=== PATIENT | male | born 1950 | race African-American/Black ===

== ENCOUNTER 2017-07-22 08:22 | Inpatient (IN) | payer OTHER ==
--- NOTE | 2017-07-22 08:25 | PDOC ---
Attending Attestation - HPI HPI: 07/22/17 09:15 The patient is a 67 year old male with PMhx of CHF, alcohol use, who present to the ER for lower GI bleed and lightheadness He states that his last drink was yesterday, 5 glasses of wine.He is complaining of painless rectal bleeding ( bright red blood). - Physicial Exam PE: 07/22/17 09:03 GENERAL: Symptomatic anemia. Painless bleeding at rectum. No tremors. HEAD: No signs of trauma EYES: PERRLA, EOMI, sclera anicteric, Pale conjunctiva. ENT: Auricles normal inspection, hearing grossly normal, nares patent, oropharynx clear without exudates. Moist mucosa. NECK: Normal ROM, supple, no lymphadenopathy, JVD, or masses LUNGS: Breath sounds equal, clear to auscultation bilaterally. No wheezes, and no crackles HEART: Regular rate and rhythm, normal S1 and S2, no murmurs, rubs or gallops ABDOMEN: Soft, obese, nontender, normoactive bowel sounds. No guarding, no rebound. No masses EXTREMITIES: Normal range of motion, no edema. No clubbing or cyanosis. No cords, erythema, or tenderness NEUROLOGICAL: Cranial nerves II through XII grossly intact. Normal speech, normal gait SKIN: Warm, Dry, normal turgor, no rashes or lesions noted. <Alida Thompson - Last Filed: 07/22/17 09:15> - Resident Resident Name: AnniNakialazaro - ED Attending Attestation I have performed the following: I have examined & evaluated the patient, The case was reviewed & discussed with the resident, I agree w/resident's findings & plan, Exceptions are as noted - Critical Care Time Total Critical Care Time: 30 Critical Care Statement: The care of this patient involved high complexity decision making to prevent further life threatening deterioration of the patient 's condition and/or to evaluate & treat vital organ system(s) failure or risk of failure. - Medical Decision Making 07/22/17 08:25 I, Dr. Rea Irving, DO, attest that this document has been prepared under my direction and personally reviewed by me in its entirety. I further attest, that it accurately reflects all work, treatment, procedures and medical decision -making performed by me. 07/22/17 08:49 a/p: 67yo male with LGIB/BRBPR -labs, type and screen, PT/IN -concern given etoh use for alcoholic liver disease and plt dysfunction -will need NPO, ivf hydration, banana bag -will monitor for alcohol withdrawal -will need admission and GI consultation -may need transfusion 07/22/17 10:02 hgb 9 lactate 2.5 receiving IVF hydration will need admission for LGIB will need repeat h/h and GI eval Dr. Hidalgo admits to Dr. Jordan call placed to dr. jordan <Rea Irving - Last Filed: 07/22/17 10:03> Heart Score/ECG Review - ECG Intrepretation Comment:: 07/22/17 08:53 sinus at 75, nl axis, pvc, t wave flattening diffusely, no acute st/t wave findings <Rea Irving - Last Filed: 07/22/17 10:03>
[2017-07-22] MEDS ORDERED: SODIUM CHLORIDE 0.9% 1000 ML INFUS.BAG IV ONE (08:26)
[2017-07-22 08:29] VITALS: BMI 34.8
[2017-07-22] MEDS ORDERED: FOLIC ACID INJECTION - 1 MG, THIAMINE HCL 100 MG, MULTIVIT INJECTION ADULT 10 ML in SOD... IVPB ONE (08:51)
[2017-07-22 09:07] LABS: BASOPHIL 0.5 % (0-2.0); EOSINOPHIL 1.2 % (0-4.5); MCH 30.8 pg (25.7-33.7); MCHC 32.2 g/dl (32.0-35.9); MEAN CELL VOLUME 95.8 fl (80-96); MEAN PLT VOLUME 7.5 fl (7.5-11.1); NEUTROPHILS 84.1 % (42.8-82.8); PLATELET COUNT 262 K/MM3 (134-434); RDW 15.9 % (11.9-15.9); WHITE BLOOD COUNT 15.1 K/mm3 (4.0-10.0)
--- NOTE | 2017-07-22 09:17 | PDOC ---
History of Present Illness - General Chief Complaint: Bleeding from Anus Stated Complaint: DIZZINESS/GI BLEED Time Seen by Provider: 07/22/17 08:25 - History of Present Illness Initial Comments: 67 y/o male with PMH of CHF and previous EtOH abuse (admitted for withdrawls in the the past) presents to the ED by ambulance for dark red blood per rectum. He has had 5 episodes of of these dark clot passage since yesterday afternoon. He has never had this prior to these past two days. Denies any chest pain, nausea, vomiting, diarrhea, fevers, chills, or other symptoms. His last drink was yesterday afternoon and he denies any symptoms of withdrawl. He has been admitted for alcohol withdrawals in the remote past but has not been drinking as much as he used to years ago. He currently drinks 3-5 drinks every few days. There was dark blood soaking the back of his pants and on the stretcher when he arrived via EMS. His PCP is Dr. Glen Hidalgo. He has never been evaluatd by a GI doctor because of insurance issues but did have a stress test in October which was clean. 07/22/17 09:16 Past History - Past Medical History Allergies/Adverse Reactions: Allergies Allergy/AdvReac Type Severity Reaction Status Date / Time No Known Allergies Allergy Verified 07/22/17 08:27 Home Medications: Ambulatory Orders Furosemide [Lasix -] 20 mg PO DAILY #30 tablet 07/02/14 Amlodipine Besylate 5 mg PO DAILY 07/22/17 Aspirin [ASA -] 81 mg PO DAILY 07/22/17 Atorvastatin Calcium 20 mg PO DAILY 07/22/17 Carvedilol [Coreg -] 12.5 mg PO BID 07/22/17 COPD: No HTN: Yes Hypercholesterolemia: Yes - Suicide/Smoking/Psychosocial Hx Smoking History: Former smoker Have you smoked in the past 12 months: No Number of Cigarettes Smoked Daily: 0 Information on smoking cessation initiated: No Hx Alcohol Use: Yes (hx of) Drug/Substance Use Hx: No Substance Use Type: Alcohol Review of Systems - Review of Systems Constitutional: No: Chills, Diaphoresis, Fever HEENTM: No: Blurred Vision Respiratory: No: Cough, Shortness of Breath, Wheezing Cardiac (ROS): No: Chest Pain, Edema, Irregular Heart Rate ABD/GI: Yes: Rectal Bleeding. No: Diarrhea, Nausea, Vomiting, Tarry Stools : No: Burning, Dysuria Musculoskeletal: No: Back Pain Integumentary: No: Bruising, Erythema, Lesions Neurological: No: Headache *Physical Exam - Vital Signs Last Vital Signs Temp Pulse Resp BP Pulse Ox 98.6 F 74 18 139/60 100 07/22/17 08:27 07/22/17 08:27 07/22/17 08:27 07/22/17 08:27 07/22/17 08:27 - Physical Exam General Appearance: Yes: Nourished, Appropriately Dressed. No: Apparent Distress HEENT: positive: EOMI, OPAL, Normal ENT Inspection Neck: positive: Trachea midline, Normal Thyroid, Supple. negative: Tender, Rigid Respiratory/Chest: positive: Lungs Clear, Normal Breath Sounds. negative: Chest Tender, Respiratory Distress, Accessory Muscle Use Cardiovascular: positive: Regular Rhythm, Regular Rate. negative: Murmur Gastrointestinal/Abdominal: positive: Normal Bowel Sounds, Flat, Soft. negative : Tender Rectal Exam: positive: other (Gross blood soaking through his pants and around his rectum. No obvious source of bleeding, external hemorrhoids, or pain in/ around his anus.). negative: normal exam, hemorrhoids Musculoskeletal: positive: Normal Inspection. negative: CVA Tenderness Extremity: positive: Normal Capillary Refill, Normal Inspection, Normal Range of Motion Integumentary: positive: Dry, Warm. 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, Fully Oriented, Alert, Normal Mood/ Affect, Normal Response ED Treatment Course - LABORATORY CBC & Chemistry Diagram: 07/22/17 08:55 07/22/17 08:55 - ADDITIONAL ORDERS Additional order review: 07/22/17 08:55 RBC 2.96 L D MCV 95.8 MCHC 32.2 RDW 15.9 MPV 7.5 D Neutrophils % 84.1 H Lymphocytes % 7.9 L D Monocytes % 6.3 Eosinophils % 1.2 D Basophils % 0.5 - Medications Given in the ED: ED Medications Discontinued Medications Generic Name Dose Route Start Last Admin Trade Name Freq PRN Reason Stop Dose Admin Sodium Chloride 1,000 ml 07/22/17 08:26 07/22/17 09:09 Normal Saline - IV 07/22/17 08:27 1,000 ml ONCE ONE Administration Medical Decision Making - Medical Decision Making 67 year old male with active bleeding from his rectum. Has not had GI workup in the past but some element of EtOH liver diseases is expected. Rectal exam did not demonstrate an obvious hemorrhoid but this could be a cause to rule out. However, highest on our differential is diverticulosis. Not likely mesenteric ischemia as he is not complaining of pain. Labs returned significant for HgB of 9.1 (down from 12, 3 years prior), Cr of 2.8 (up from 1.8, 3 years prior), and lactate of 2.5. 07/22/17 10:[address] Kwok (covering for Gwen) who wants to admit the patient to the ICU and consult GI. Spoke to Dr. Lopez who wants us to speak to GI prior to sending the patient upstairs to the ICU. Spoke to Dr. Ahuja who informed us to speak to Dr. Roque. Dr. Roque told us to speak to Dr. Farrell. Dr. Farrell came down and evaluated the patient at 11:14 AM with plans to scope tomorrow upper and lower. 07/22/17 11:01 *DC/Admit/Observation/Transfer Diagnosis at time of Disposition: GI bleed Qualifiers: GI bleed type/associated pathology: anorectal hemorrhage Qualified Code(s): K62.5 - Hemorrhage of anus and rectum - Discharge Dispostion Condition at time of disposition: Stable Admit: Yes - Referrals Referrals: Glen Hidalgo [Primary Care Provider] - - Patient Instructions - Post Discharge Activity
[2017-07-22 09:27] LABS: INR 1.11 (0.82-1.09); PROTHROMBIN TIME (PATIENT) 12.5 SEC (9.98-11.88)
[2017-07-22 09:29] LABS: ACTIVATED PTT 25.2 SECONDS (26.9-34.4)
[2017-07-22 09:31] LABS: ALBUMIN 3.1 g/dl (3.4-5.0); ANION GAP 7 (8-16); BILIRUBIN,TOTAL 0.7 mg/dL (0.2-1.0); CALCIUM 8.2 mg/dL (8.5-10.1); CO2 26 mmol/L (21-32); CREATININE 2.8 mg/dL (0.7-1.3); GLUCOSE,RANDOM 149 mg/dL (74-106); SGOT/AST 18 U/L (15-37); SGPT/ALT 20 U/L (12-78); TOT PROT 5.8 g/dl (6.4-8.2)
[2017-07-22 09:33] LABS: ALK PHOS 85 U/L (45-117); CPK 617 IU/L (39-308); TROPONIN I < 0.02 ng/ml (0.00-0.05)
[2017-07-22] MEDS ORDERED: PANTOPRAZOLE SODIUM 40 MG VIAL IVPUSH ONE (11:15)
--- NOTE | 2017-07-22 11:26 | CON.GI ---
Consult Consult Specialty:: GI Referred by:: ED Reason for Consultation:: blood in stool - History of Present Illness History of Present Illness: A 67 yom with CHF, RI, and current ETOH abuse noticed 1 day ago dark colored blood in stool. Had 3 lose bms without urgency, tenismus, abdominal pain, cramps , nausea, vomiting, or fever. Denies chest pain, shortness of breath, dizziness. Admits to be an alcoholic. COntinues to drink about 5 glasses of wine daily. Was told he had liver "problem" in the past. Never had EGD, Colonoscopy. No prior history of GI bleeding, diverticulosis, ulcers. No significant personal, or family GI history.Takes ASA daily. Denies other NSAIDs - History Source History Provided By: Patient Limitations to Obtaining History: No Limitations - Past Medical History Cardio/Vascular: Yes: CHF, HTN Renal/: Yes: Renal Inusuff - Past Surgical History Past Surgical History: Yes: None - Alcohol/Substance Use Hx Alcohol Use: Yes (hx of) Number of Drinks Daily: 5 History of Substance Use: reports: None - Smoking History Smoking history: Former smoker Have you smoked in the past 12 months: No Aproximately how many cigarettes per day: 0 - Social History History of Recent Travel: No Home Medications - Allergies Allergies/Adverse Reactions: Allergies Allergy/AdvReac Type Severity Reaction Status Date / Time No Known Allergies Allergy Verified 07/22/17 08:27 - Home Medications Home Medications: Ambulatory Orders Furosemide [Lasix -] 20 mg PO DAILY #30 tablet 07/02/14 Amlodipine Besylate 5 mg PO DAILY 07/22/17 Aspirin [ASA -] 81 mg PO DAILY 07/22/17 Atorvastatin Calcium 20 mg PO DAILY 07/22/17 Carvedilol [Coreg -] 12.5 mg PO BID 07/22/17 Family Disease History - Family Disease History Family History: Unremarkable Review of Systems - Review of Systems Constitutional: denies: Chills, Fever, Unintentional Wgt. Loss HENT: denies: Difficult Swallowing Respiratory: denies: PND, SOB, SOB on Exertion Gastrointestinal: reports: Diarrhea, Rectal Bleeding (see HPI). denies: Abdominal Pain, Bloating, Dysphagia, Vomiting, Vomiting Blood Neurological: reports: Tremors Endocrine: denies: Unexplained Weight Loss Hematology/Lymphatic: denies: Easily Bruised, Excessive Bleeding Psychiatric: denies: Anxiety, Depression Physical Exam-GI Vital Signs: Vital Signs Temperature 98.1 F 07/22/17 10:28 Pulse Rate 71 07/22/17 10:28 Respiratory Rate 18 07/22/17 10:28 Blood Pressure 125/60 07/22/17 10:28 O2 Sat by Pulse Oximetry (%) 98 07/22/17 10:28 Constitutional: Yes: Well Nourished, Calm Eyes: Yes: Conjunctiva Clear HENT: Yes: Atraumatic Neck: Yes: Supple Cardiovascular: Yes: Regular Rate and Rhythm Respiratory: Yes: Regular Gastrointestinal Inspection: Yes: Distention. No: Ascites ...Palpate: Yes: Soft. No: Firm/Rigid, Guarding, Mass, Pulsatile Mass, Tenderness ...Percussion: No: Fluid Wave ...Rectal Exam: Yes: Other (done in ED.) Edema: No Integumentary: No: Jaundice Neurological: Yes: Alert, Oriented Labs: CBC, BMP 07/22/17 08:55 07/22/17 08:55 INR, PTT INR 1.11 (0.82-1.09) 07/22/17 08:55 Laboratory Results - last 24 hr 07/22/17 07/22/17 07/22/17 08:44 08:44 08:55 WBC RBC Hgb Hct MCV MCH MCHC RDW Plt Count MPV Neutrophils % Lymphocytes % Monocytes % Eosinophils % Basophils % PT with INR 12.50 H INR 1.11 PTT (Actin FS) 25.2 L Sodium Potassium Chloride Carbon Dioxide Anion Gap BUN Creatinine Creat Clearance w eGFR Random Glucose Lactic Acid 2.5 H* Calcium Magnesium Total Bilirubin AST ALT Alkaline Phosphatase Creatine Kinase Creatine Kinase Index CK-MB (CK-2) Troponin I Total Protein Albumin Lipase Blood Type O POSITIVE Antibody Screen Negative 07/22/17 07/22/17 08:55 08:55 WBC 15.1 H D RBC 2.96 L D Hgb 9.1 L D Hct 28.4 L D MCV 95.8 MCH 30.8 MCHC 32.2 RDW 15.9 Plt Count 262 MPV 7.5 D Neutrophils % 84.1 H Lymphocytes % 7.9 L D Monocytes % 6.3 Eosinophils % 1.2 D Basophils % 0.5 PT with INR INR PTT (Actin FS) Sodium 140 Potassium 4.3 Chloride 107 Carbon Dioxide 26 Anion Gap 7 L BUN 31 H D Creatinine 2.8 H D Creat Clearance w eGFR 22.65 Random Glucose 149 H D Lactic Acid Calcium 8.2 L Magnesium 2.0 Total Bilirubin 0.7 D AST 18 D ALT 20 D Alkaline Phosphatase 85 D Creatine Kinase 617 H Creatine Kinase Index 2.0 CK-MB (CK-2) 12.382 H Troponin I < 0.02 D Total Protein 5.8 L Albumin 3.1 L Lipase 119 Blood Type Antibody Screen Imaging - Results X-ray: Report Reviewed Problem List - Problems (1) Hematochezia Code(s): K92.1 - MELENA (2) Alcohol abuse Code(s): F10.10 - ALCOHOL ABUSE, UNCOMPLICATED (3) Renal insufficiency Code(s): N28.9 - DISORDER OF KIDNEY AND URETER, UNSPECIFIED (4) Alcohol withdrawal Code(s): F10.239 - ALCOHOL DEPENDENCE WITH WITHDRAWAL, UNSPECIFIED (5) Congestive heart failure, acute Code(s): I50.9 - HEART FAILURE, UNSPECIFIED (6) Continuous alcohol dependence Code(s): F10.20 - ALCOHOL DEPENDENCE, UNCOMPLICATED Assessment/Plan Hematochezia w/o hemodynamic instability. No BMs while in ED. Doubt upper GI source of bleeding however given the chronic alcohol abuse, need to evaluate for esophageal varices, gastritis, esophagitis. Agree with stopping ASA PPI po qd Monitor for signs of ETOH withdrawal Repeat Hgb at 6 pm today Clear liquid diet today, bowel prep tonight for Colonoscopy and EGD in am discussed with the patient ETOH related liver disease work up as OP.
[2017-07-22 12:38] LABS: BASOPHIL 0.4 % (0-2.0); EOSINOPHIL 0.2 % (0-4.5); MCH 30.9 pg (25.7-33.7); MCHC 32.1 g/dl (32.0-35.9); MEAN CELL VOLUME 96.3 fl (80-96); NEUTROPHILS 87.2 % (42.8-82.8); PLATELET COUNT 206 K/MM3 (134-434); RDW 16.2 % (11.9-15.9); WHITE BLOOD COUNT 13.8 K/mm3 (4.0-10.0)
--- NOTE | 2017-07-22 13:27 | CONSULT ---
Consultation: REQUESTING PROVIDER: CONSULT REQUEST: PULM/CCM We have been asked to medically evaluate this patient for GI bleed. HISTORY OF PRESENT ILLNESS: 67 y/o M with PMH of CHF and previous EtOH abuse (50 yr hx, and admitted for withdrawals in the the past), recent ingestion of five glasses of red wine on Saturday, who presented to the ED by ambulance for bright red blood per rectum. As per pt, bleeding started when pt had a BM on Saturday morning (07/20). He noticed voluminous, clotted bright red blood per rectum into the toilet bowl. Pt experienced similar intermittent episodes on Saturday, and on Saturday, he had a near syncopal episode where he felt lightheaded, and nearly fell, his son catching him. Pt did not experience LOC and experienced no head trauma. Bleeding was not a/w fever, chills, abdominal pain, N/V/D. Pt was transferred to the ICU for continued management. Never had EGD, Colonoscopy. No prior history of GI bleeding, diverticulosis, ulcers. No significant personal, or family GI history. Currently, pt has not noticed any BRBPR. Last BM was this AM and he has been able to ambulate to restroom without assistance. REVIEW OF SYSTEMS: CONSTITUTIONAL: Absent: fever, chills, diaphoresis, generalized weakness, malaise, loss of appetite, weight change HEENT: Absent: rhinorrhea, nasal congestion, throat pain, throat swelling, difficulty swallowing, mouth swelling, ear pain, eye pain, visual changes CARDIOVASCULAR: Absent: chest pain, syncope, palpitations, irregular heart rate, lightheadedness , peripheral edema RESPIRATORY: Absent: cough, shortness of breath, dyspnea with exertion, orthopnea, wheezing, stridor, hemoptysis GASTROINTESTINAL: Absent: abdominal pain, abdominal distension, nausea, vomiting, diarrhea, constipation, melena, hematochezia GENITOURINARY: Absent: dysuria, frequency, urgency, hesitancy, hematuria, flank pain, genital pain MUSCULOSKELETAL: Absent: myalgia, arthralgia, joint swelling, back pain, neck pain SKIN: Absent: rash, itching, pallor HEMATOLOGIC/IMMUNOLOGIC: +active BRBPR Absent: easy bleeding, easy bruising, lymphadenopathy, frequent infections ENDOCRINE: Absent: unexplained weight gain, unexplained weight loss, heat intolerance, cold intolerance NEUROLOGIC: Absent: headache, focal weakness or paresthesias, dizziness, unsteady gait, seizure, mental status changes, bladder or bowel incontinence PSYCHIATRIC: Absent: anxiety, depression, suicidal or homicidal ideation, hallucinations. PHYSICAL EXAMINATION Vital Signs - 24 hr 07/22/17 07/22/17 07/22/17 08:27 09:17 09:57 Temperature 98.6 F Pulse Rate 74 70 Pulse Rate [ 72 Left Apical] Respiratory 18 16 Rate Blood Pressure 139/60 Blood Pressure 97/61 [Right Arm] O2 Sat by Pulse 100 98 97 Oximetry (%) 07/22/17 07/22/17 07/22/17 10:28 11:00 11:43 Temperature 98.1 F 97.8 F Pulse Rate 67 Pulse Rate [ 71 Left Apical] Respiratory 18 19 Rate Blood Pressure 151/72 Blood Pressure 125/60 [Right Arm] O2 Sat by Pulse 98 98 Oximetry (%) 07/22/17 11:46 Temperature Pulse Rate Pulse Rate [ Left Apical] Respiratory Rate Blood Pressure Blood Pressure [Right Arm] O2 Sat by Pulse 100 Oximetry (%) GENERAL: Awake, alert, and fully oriented, in no acute distress. Resting comfortably HEAD: Normal with no signs of trauma. EYES: Pupils equal, round and reactive to light, extraocular movements intact, sclera anicteric, conjunctiva clear. NECK: Normal range of motion, supple LUNGS: Breath sounds equal, clear to auscultation bilaterally. No wheezes, and no crackles. HEART: Regular rate and rhythm, normal S1 and S2 without murmur, rub or gallop. ABDOMEN: Soft, nontender, not distended, normoactive bowel sounds, no guarding, no rebound, no masses. MUSCULOSKELETAL: Normal range of motion at all joints. No bony deformities or tenderness. No CVA tenderness. LOWER EXTREMITIES: 2+ dorsalis pedis pulses, warm, well-perfused. No cyanosis. No clubbing. : external hemorrhoid, non-thrombosed, non-bleeding NEUROLOGICAL: Cranial nerves II-XII intact. Laboratory Results - last 24 hr 07/22/17 07/22/17 07/22/17 08:44 08:44 08:55 WBC RBC Hgb Hct MCV MCH MCHC RDW Plt Count MPV Neutrophils % Lymphocytes % Monocytes % Eosinophils % Basophils % PT with INR 12.50 H INR 1.11 PTT (Actin FS) 25.2 L Sodium Potassium Chloride Carbon Dioxide Anion Gap BUN Creatinine Creat Clearance w eGFR Random Glucose Lactic Acid 2.5 H* Calcium Magnesium Total Bilirubin AST ALT Alkaline Phosphatase Creatine Kinase Creatine Kinase Index CK-MB (CK-2) Troponin I Total Protein Albumin Lipase Blood Type O POSITIVE Antibody Screen Negative 07/22/17 07/22/17 07/22/17 08:55 08:55 12:20 WBC 15.1 H D 13.8 H RBC 2.96 L D 2.65 L Hgb 9.1 L D 8.2 L Hct 28.4 L D 25.6 L MCV 95.8 96.3 H MCH 30.8 30.9 MCHC 32.2 32.1 RDW 15.9 16.2 H Plt Count 262 206 D MPV 7.5 D 8.0 Neutrophils % 84.1 H 87.2 H Lymphocytes % 7.9 L D 8.1 Monocytes % 6.3 4.1 Eosinophils % 1.2 D 0.2 D Basophils % 0.5 0.4 PT with INR INR PTT (Actin FS) Sodium 140 Potassium 4.3 Chloride 107 Carbon Dioxide 26 Anion Gap 7 L BUN 31 H D Creatinine 2.8 H D Creat Clearance w eGFR 22.65 Random Glucose 149 H D Lactic Acid Calcium 8.2 L Magnesium 2.0 Total Bilirubin 0.7 D AST 18 D ALT 20 D Alkaline Phosphatase 85 D Creatine Kinase 617 H Creatine Kinase Index 2.0 CK-MB (CK-2) 12.382 H Troponin I < 0.02 D Total Protein 5.8 L Albumin 3.1 L Lipase 119 Blood Type Antibody Screen Active Medications Generic Name Dose Route Start Last Admin Trade Name Giovanni PRN Reason Stop Dose Admin Chlorhexidine Gluconate 1 applic 07/22/17 22:00 Hibiclens For Decolonization - TP HS [facility] Folic Acid 1 mg/ Thiamine HCl 1,000 mls @ 125 mls/hr 07/22/17 08:51 07/22/17 09:48 100 mg/ Multivitamins/Minerals IVPB 07/22/17 16:50 125 mls/hr 10 ml/ Sodium Chloride ONCE ONE Administration Mupirocin 1 applic 07/22/17 22:00 Bactroban Ointment (For Decolonization) - NS 07/27/17 21:59 BID [facility] ASSESSMENT/PLAN: 67 y/o M with PMH of CHF and previous EtOH abuse (50 yr hx, and admitted for withdrawals in the the past), recent ingestion of five glasses of red wine on Saturday, who presented to the ED by ambulance for bright red blood per rectum. Bleeding was not a/w fever, chills, abdominal pain, N/V/D. Pt was transferred to the ICU for continued management. #GI Active GI bleed r/o esophageal varices 2/2 alcoholic abuse -Pt currently active hematochezia w/o hemodynamic instability -Stop aspirin -Hb currently 8.2, dropped one unit over 3 hrs -To receive 1 unit PRBCs stat, d/t hx CHF - 20mg Lasix IVP post transfusion avoid overload NOTE pt refused - will hold unless Hb<7 -On Protonix 40mg IVP qd -Clear liquid diet today, bowel prep tonight for Colonoscopy and EGD in am- NPO after midnight -F/u next CBC -ETOH related liver disease work up as outpt #ALCOHOL WITHDRAWAL -Currently has no signs of withdrawal -Continue Folic acid, thiamine #CARDIO CHF -Currently holding pt's home lasix -Will f/u for signs of overload if pt received unit of blood #F/E/N -Monitor electrolytes -NPO after midnight for EGD, colonoscopy procedures tomorrow #DISPO Continued monitoring in ICU, as pt is actively bleeding Dispo: We will continue to follow the patient. Thank you for this consultative opportunity. Visit type - Emergency Visit Emergency Visit: No - New Patient This patient is new to me today: Yes Date on this admission: 07/22/17 - Critical Care Critical Care patient: Yes Total Critical Care Time (in minutes): 42 Critical Care Statement: The care of this patient involved high complexity decision making to prevent further life threatening deterioration of the patient 's condition and/or to evaluate & treat vital organ system(s) failure or risk of failure.
[2017-07-22] MEDS ORDERED: FUROSEMIDE 40 MG/4 ML INJECTABLE VIAL IVPUSH SCH (13:44)
--- NOTE | 2017-07-22 13:56 | EKG ---
Test Reason : Blood Pressure : / mmHG Vent. Rate : 075 BPM Atrial Rate : 075 BPM P-R Int : 150 ms QRS Dur : 084 ms QT Int : 438 ms P-R-T Axes : 030 035 021 degrees QTc Int : 489 ms SINUS RHYTHM WITH SINUS ARRHYTHMIA WITH OCCASIONAL PREMATURE VENTRICULAR COMPLEXES NONSPECIFIC T WAVE ABNORMALITY PROLONGED QT ABNORMAL ECG WHEN COMPARED WITH ECG OF 28-JUN-2014 09:26, PREMATURE VENTRICULAR COMPLEXES ARE NOW PRESENT T WAVE VARIATION Confirmed by JANI KEENAN, CARTER ([id number]) on 07/22/2017 1:55:44 PM Referred By: Confirmed By:CARTER GUNTER MD
--- NOTE | 2017-07-22 14:10 | PN ---
Teaching Attending Note Name of Resident: Ariana Rodgers ATTENDING PHYSICIAN STATEMENT I saw and evaluated the patient. I reviewed the resident's note and discussed the case with the resident. I agree with the resident's findings and plan as documented. SUBJECTIVE: Briefly, 67yo male with h/o CHF, alcohol abuse who presents with 2 day history of rectal bleeding. Blood described as dark. No nausea, vomiting or abdominal pain. No shortness of breath or chest pain. Never had an endoscopy or colonoscopy. No prior bleeding episodes. Borderline hypotensive upon presentation. OBJECTIVE: Last Vital Signs Temp Pulse Resp BP Pulse Ox 97.8 F 78 18 132/64 100 07/22/17 11:43 07/22/17 14:00 07/22/17 14:00 07/22/17 14:00 07/22/17 11:46 Intake & Output 07/19/17 07/20/17 07/21/17 07/22/17 23:59 23:59 23:59 23:59 Intake Total 540 Output Total 100 Balance 440 Weight 239 lb 3.225 oz Gen: NAD at rest Heart: RRR Lung: decreased breath sounds at the bases Abd: softly distended, nontender Ext: no edema CBC, BMP 07/22/17 12:20 07/22/17 08:55 Active Medications Chlorhexidine Gluconate (Hibiclens For Decolonization -) 1 applic TP HS JULEE Furosemide (Lasix Injection -) 20 mg IVPUSH [employer] JULEE Stop: 07/22/17 20:00 Folic Acid 1 mg/ Thiamine HCl 100 mg/ Multivitamins/Minerals 10 ml/ Sodium Chloride 1,000 mls @ 125 mls/hr IVPB ONCE ONE Stop: 07/22/17 16:50 Last Admin: 07/22/17 09:48 Dose: 125 mls/hr Mupirocin (Bactroban Ointment (For Decolonization) -) 1 applic NS BID JULEE Stop: 07/27/17 21:59 Pantoprazole Sodium (Protonix Iv) 40 mg IVPUSH DAILY [facility] ASSESSMENT AND PLAN: GI Bleed Acute Blood Loss Anemia Lactic Acidosis Alcohol Abuse LV Systolic Dysfunction Acute on Chronic Renal Failure - monitor H/H - transfuse as needed - protonix - GI planning on endoscopy/colonoscopy - ensure large bore peripheral access - monitor for signs of withdrawal, low threshold to start librium - monitor urine output, creatinine - send urine lytes, creatinine to calculate FeNa - renal/bladder sono - NPO for now - DVT prophylaxis Thank you for this consult Glen Lopez MD
--- NOTE | 2017-07-22 15:21 | HP ---
Admitting History and Physical - Primary Care Physician PCP: Araceli Kwok - Admission Chief Complaint: GI BLEED History of Present Illness: HERE WITH LOWER GI BLEED HISTORY OF ETOH USE. DENIES CHEST PAIN OR DIZZINESS. PATIENT IS AWAKE ALERT SAYS HE HAD 5 DRINKS LAST NIGHT. History Source: Patient - Past Medical History Cardiovascular: Yes: CHF, HTN Renal/: Yes: Renal Inusuff - Past Surgical History Past Surgical History: Yes: None - Smoking History Smoking history: Former smoker Have you smoked in the past 12 months: No Aproximately how many cigarettes per day: 0 - Alcohol/Substance Use Hx Alcohol Use: Yes (hx of) Number of Drinks Daily: 5 History of Substance Use: reports: None - Social History History of Recent Travel: No Home Medications - Allergies Allergies/Adverse Reactions: Allergies Allergy/AdvReac Type Severity Reaction Status Date / Time No Known Allergies Allergy Verified 07/22/17 08:27 - Home Medications Home Medications: Ambulatory Orders Furosemide [Lasix -] 20 mg PO DAILY #30 tablet 07/02/14 Amlodipine Besylate 5 mg PO DAILY 07/22/17 Aspirin [ASA -] 81 mg PO DAILY 07/22/17 Atorvastatin Calcium 20 mg PO DAILY 07/22/17 Carvedilol [Coreg -] 12.5 mg PO BID 07/22/17 Review of Systems - Review of Systems Constitutional: reports: No Symptoms Eyes: reports: No Symptoms HENT: reports: No Symptoms Neck: reports: No Symptoms Cardiovascular: reports: No Symptoms Respiratory: reports: No Symptoms Gastrointestinal: reports: Rectal Bleeding Genitourinary: reports: No Symptoms Integumentary: reports: No Symptoms Neurological: reports: No Symptoms Endocrine: reports: No Symptoms Hematology/Lymphatic: reports: No Symptoms Psychiatric: reports: No Symptoms Physical Examination Vital Signs: Vital Signs Temperature 97.8 F 07/22/17 11:43 Pulse Rate 78 07/22/17 14:00 Respiratory Rate 18 07/22/17 14:00 Blood Pressure 132/64 07/22/17 14:00 O2 Sat by Pulse Oximetry (%) 100 07/22/17 11:46 Constitutional: Yes: Mild Distress Eyes: Yes: WNL HENT: Yes: WNL Neck: Yes: WNL Cardiovascular: Yes: WNL Respiratory: Yes: WNL Gastrointestinal: Yes: Distention ...Rectal Exam: Yes: WNL Renal/: Yes: WNL Breast(s): Yes: WNL Musculoskeletal: Yes: WNL Extremities: Yes: WNL Edema: No Peripheral Pulses WNL: Yes Integumentary: Yes: WNL Wound/Incision: Yes: Clean/Dry Neurological: Yes: WNL ...Motor Strength: WNL Psychiatric: Yes: WNL Labs: CBC, BMP 07/22/17 12:20 07/22/17 08:55 Problem List - Problems (1) Alcohol abuse Code(s): F10.10 - ALCOHOL ABUSE, UNCOMPLICATED (2) GI bleed Code(s): K92.2 - GASTROINTESTINAL HEMORRHAGE, UNSPECIFIED Qualifiers: GI bleed type/associated pathology: anorectal hemorrhage Qualified Code(s) : K62.5 - Hemorrhage of anus and rectum (3) Hematochezia Code(s): K92.1 - MELENA Assessment/Plan GI EVAL PPI IV NPO IV FLUIDS THIAMINE IV BANANA BAG OUTPATIENT DETOX
[2017-07-22 17:45] LABS: BASOPHIL 0.3 % (0-2.0); EOSINOPHIL 0.3 % (0-4.5); MCH 30.9 pg (25.7-33.7); MCHC 32.3 g/dl (32.0-35.9); MEAN CELL VOLUME 95.7 fl (80-96); MEAN PLT VOLUME 7.8 fl (7.5-11.1); NEUTROPHILS 82.9 % (42.8-82.8); PLATELET COUNT 230 K/MM3 (134-434); RDW 16.6 % (11.9-15.9); WHITE BLOOD COUNT 12.5 K/mm3 (4.0-10.0)
[2017-07-22] MEDS ORDERED: PEG3350/SOD SULF,BICARB,CL/KCL 4,000 ML SOLN.RECON PO ONE (18:00)
[2017-07-22 18:19] LABS: ALBUMIN 2.7 g/dl (3.4-5.0); ALK PHOS 72 U/L (45-117); ANION GAP 5 (8-16); BILIRUBIN,DIRECT 0.2 mg/dL (0.0-0.2); BILIRUBIN,TOTAL 0.5 mg/dL (0.2-1.0); CALCIUM 7.3 mg/dL (8.5-10.1); CO2 26 mmol/L (21-32); CREATININE 2.4 mg/dL (0.7-1.3); GLUCOSE,RANDOM 109 mg/dL (74-106); SGOT/AST 15 U/L (15-37); SGPT/ALT 18 U/L (12-78); TOT PROT 5.1 g/dl (6.4-8.2)
[2017-07-22 19:20] LABS: INR 1.12 (0.82-1.09); PROTHROMBIN TIME (PATIENT) 12.6 SEC (9.98-11.88)
[2017-07-22] MEDS ORDERED: CHLORHEXIDINE GLUCONATE 4% CLEANSER FOR DECOLONIZATION TP SCH (22:00)
[2017-07-22] MEDS: MUPIROCIN 2% TOPICAL OINTMENT FOR DECOLONIZATION NS SCH (22:09)
[2017-07-23 00:14] LABS: BASOPHIL 0.6 % (0-2.0); EOSINOPHIL 1.4 % (0-4.5); MCH 30.5 pg (25.7-33.7); MCHC 31.7 g/dl (32.0-35.9); MEAN CELL VOLUME 96.3 fl (80-96); MEAN PLT VOLUME 7.9 fl (7.5-11.1); NEUTROPHILS 76.4 % (42.8-82.8); PLATELET COUNT 213 K/MM3 (134-434); RDW 16.3 % (11.9-15.9); WHITE BLOOD COUNT 11.8 K/mm3 (4.0-10.0)
[2017-07-23 06:49] LABS: MCH 31.2 pg (25.7-33.7); MCHC 32.9 g/dl (32.0-35.9); MEAN CELL VOLUME 94.7 fl (80-96); MEAN PLT VOLUME 7.1 fl (7.5-11.1); PLATELET COUNT 194 K/MM3 (134-434); RDW 16.1 % (11.9-15.9); WHITE BLOOD COUNT 9.1 K/mm3 (4.0-10.0)
[2017-07-23 07:09] LABS: ANION GAP 11 (8-16); CALCIUM 7.4 mg/dL (8.5-10.1); CO2 22 mmol/L (21-32); CREATININE 2.1 mg/dL (0.7-1.3); GLUCOSE,RANDOM 104 mg/dL (74-106); MAGNESIUM 1.9 mg/dL (1.8-2.4)
[2017-07-23] MEDS ORDERED: SODIUM PHOSPHATE IVPB ONE (09:00)
[2017-07-23] MEDS ORDERED: WATER IVPB ONE (09:00)
[2017-07-23] MEDS ORDERED: DEXTROSE IVPB ONE (09:00)
[2017-07-23] MEDS ORDERED: POTASSIUM PHOSPHATE 30 MM in DEXTROSE 5%-WATER - 240 ML IVPB ONE (09:30)
[2017-07-23] MEDS: MUPIROCIN 2% TOPICAL OINTMENT FOR DECOLONIZATION NS SCH (09:50)
[2017-07-23] MEDS ORDERED: PANTOPRAZOLE SODIUM 40 MG VIAL IVPUSH SCH (10:00)
--- NOTE | 2017-07-23 10:22 | PN ---
Progress Note, Physician History of Present Illness: Finished prep. Reports clear liquid per rectum. No events overnight. Hgb 7.1 g/ dl. Vital signs normal. - Current Medication List Current Medications: Active Medications Chlorhexidine Gluconate (Hibiclens For Decolonization -) 1 applic TP HS [facility] Last Admin: 07/22/17 22:09 Dose: 1 applic Potassium Phosphate 30 mm/ (Dextrose) 250 mls @ 62.5 mls/hr IVPB ONCE ONE Stop: 07/23/17 13:29 Last Admin: 07/23/17 09:43 Dose: 62.5 mls/hr Mupirocin (Bactroban Ointment (For Decolonization) -) 1 applic NS BID JULEE Stop: 07/27/17 21:59 Last Admin: 07/23/17 09:50 Dose: 1 applic Pantoprazole Sodium (Protonix Iv) 40 mg IVPUSH DAILY [facility] Last Admin: 07/23/17 09:37 Dose: 40 mg - Objective Vital Signs: Vital Signs Temperature 98.5 F 07/23/17 07:43 Pulse Rate 77 07/23/17 06:00 Respiratory Rate 72 H 07/23/17 07:43 Blood Pressure 145/68 07/23/17 07:43 O2 Sat by Pulse Oximetry (%) 100 07/23/17 07:47 Constitutional: Yes: No Distress, Anxious Eyes: Yes: Conjunctiva Clear HENT: Yes: Atraumatic Neck: Yes: Supple Gastrointestinal: Yes: Soft, Distention, Rectal Bleeding (dark blood initially with prep.). No: Tenderness Neurological: Yes: Alert, Oriented, Tremors Labs: CBC, BMP 07/23/17 06:30 07/23/17 05:10 INR, PTT INR 1.12 (0.82-1.09) 07/22/17 17:00 Laboratory Results - last 24 hr 07/22/17 07/22/17 07/22/17 08:44 12:20 14:50 WBC 13.8 H RBC 2.65 L Hgb 8.2 L Hct 25.6 L MCV 96.3 H MCH 30.9 MCHC 32.1 RDW 16.2 H Plt Count 206 D MPV 8.0 Neutrophils % 87.2 H Lymphocytes % 8.1 Monocytes % 4.1 Eosinophils % 0.2 D Basophils % 0.4 PT with INR INR Sodium Potassium Chloride Carbon Dioxide Anion Gap BUN Creatinine Creat Clearance w eGFR Random Glucose Serum Osmolality 300 Lactic Acid Calcium Phosphorus Magnesium Total Bilirubin Direct Bilirubin AST ALT Alkaline Phosphatase Total Protein Albumin Urine Osmolality Cancelled Ur Random Sodium Ur Random Potassium Ur Random Chloride Urine Creatinine Blood Type O POSITIVE Antibody Screen Negative Crossmatch See Detail 07/22/17 07/22/17 07/22/17 17:00 17:00 17:00 WBC 12.5 H RBC 2.40 L Hgb 7.4 L Hct 22.9 L MCV 95.7 MCH 30.9 MCHC 32.3 RDW 16.6 H Plt Count 230 MPV 7.8 Neutrophils % 82.9 H Lymphocytes % 10.1 D Monocytes % 6.4 Eosinophils % 0.3 Basophils % 0.3 PT with INR 12.60 H INR 1.12 Sodium 144 Potassium 4.5 Chloride 113 H Carbon Dioxide 26 Anion Gap 5 L BUN 29 H Creatinine 2.4 H Creat Clearance w eGFR 27.06 Random Glucose 109 H D Serum Osmolality Lactic Acid Calcium 7.3 L Phosphorus Magnesium Total Bilirubin 0.5 D Direct Bilirubin 0.2 AST 15 ALT 18 Alkaline Phosphatase 72 Total Protein 5.1 L Albumin 2.7 L Urine Osmolality Ur Random Sodium Ur Random Potassium Ur Random Chloride Urine Creatinine Blood Type Antibody Screen Crossmatch 07/22/17 07/22/17 07/22/17 17:25 17:25 17:25 WBC RBC Hgb Hct MCV MCH MCHC RDW Plt Count MPV Neutrophils % Lymphocytes % Monocytes % Eosinophils % Basophils % PT with INR INR Sodium Potassium Chloride Carbon Dioxide Anion Gap BUN Creatinine Creat Clearance w eGFR Random Glucose Serum Osmolality Lactic Acid Calcium Phosphorus Magnesium Total Bilirubin Direct Bilirubin AST ALT Alkaline Phosphatase Total Protein Albumin Urine Osmolality 474 Ur Random Sodium 54 Ur Random Potassium 51.6 Ur Random Chloride 70 Urine Creatinine 128.0 Blood Type Antibody Screen Crossmatch 07/23/17 07/23/17 07/23/17 00:00 00:00 05:10 WBC 11.8 H RBC 2.44 L Hgb 7.5 L Hct 23.5 L MCV 96.3 H MCH 30.5 MCHC 31.7 L RDW 16.3 H Plt Count 213 MPV 7.9 Neutrophils % 76.4 Lymphocytes % 13.3 D Monocytes % 8.3 Eosinophils % 1.4 D Basophils % 0.6 PT with INR INR Sodium 143 Potassium 3.5 D Chloride 110 H Carbon Dioxide 22 Anion Gap 11 BUN 23 H D Creatinine 2.1 H Creat Clearance w eGFR Random Glucose 104 Serum Osmolality Lactic Acid 2.2 H* Calcium 7.4 L Phosphorus 2.0 L Magnesium 1.9 Total Bilirubin Direct Bilirubin AST ALT Alkaline Phosphatase Total Protein Albumin Urine Osmolality Ur Random Sodium Ur Random Potassium Ur Random Chloride Urine Creatinine Blood Type Antibody Screen Crossmatch 07/23/17 07/23/17 05:10 06:30 WBC 9.1 RBC 2.28 L Hgb 7.1 L Hct 21.6 L MCV 94.7 MCH 31.2 MCHC 32.9 RDW 16.1 H Plt Count 194 MPV 7.1 L D Neutrophils % Lymphocytes % Monocytes % Eosinophils % Basophils % PT with INR INR Sodium Potassium Chloride Carbon Dioxide Anion Gap BUN Creatinine Creat Clearance w eGFR Random Glucose Serum Osmolality Lactic Acid Calcium Phosphorus Magnesium Total Bilirubin Direct Bilirubin AST ALT Alkaline Phosphatase Total Protein Albumin 2.8 L Urine Osmolality Ur Random Sodium Ur Random Potassium Ur Random Chloride Urine Creatinine Blood Type Antibody Screen Crossmatch Problem List - Problems (1) Hematochezia Code(s): K92.1 - MELENA (2) Alcohol abuse Code(s): F10.10 - ALCOHOL ABUSE, UNCOMPLICATED (3) Renal insufficiency Code(s): N28.9 - DISORDER OF KIDNEY AND URETER, UNSPECIFIED (4) Alcohol withdrawal Code(s): F10.239 - ALCOHOL DEPENDENCE WITH WITHDRAWAL, UNSPECIFIED (5) Congestive heart failure, acute Code(s): I50.9 - HEART FAILURE, UNSPECIFIED (6) Continuous alcohol dependence Code(s): F10.20 - ALCOHOL DEPENDENCE, UNCOMPLICATED Assessment/Plan Acute blood loss anemia Lower GI tract bleeding Alcohol abuse Stable EGD/Colonsocopy this am Discussed with the patient
[2017-07-23] MEDS ORDERED: PROPOFOL 20 ML ONE (11:29)
[2017-07-23] MEDS ORDERED: PHENYLEPHRINE HCL 10 MG/1 ML SINGLE DOSE VIAL ONE (11:29)
--- NOTE | 2017-07-23 12:17 | PN ---
Teaching Attending Note Name of Resident: Ariana Rodgers ATTENDING PHYSICIAN STATEMENT I saw and evaluated the patient. I reviewed the resident's note and discussed the case with the resident. I agree with the resident's findings and plan as documented. SUBJECTIVE: Pt seen and examined in the ICU. Prepped overnight, no bleeding noted. No nausea , vomiting or abdominal pain. OBJECTIVE: Last Vital Signs Temp Pulse Resp BP Pulse Ox 98.5 F 84 18 168/71 100 07/23/17 07:43 07/23/17 10:00 07/23/17 10:00 07/23/17 10:00 07/23/17 07:47 Intake & Output 07/20/17 07/21/17 07/22/17 07/23/17 23:59 23:59 23:59 23:59 Intake Total 5260 0 Output Total 500 650 Balance 4760 -650 Weight 239 lb 3.225 oz 239 lb 6.752 oz Gen: NAD at rest Heart: RRR Lung: decreased breath sounds at the bases Abd: softly distended, nontender Ext: no edema CBC, BMP 07/23/17 06:30 07/23/17 05:10 Active Medications Chlorhexidine Gluconate (Hibiclens For Decolonization -) 1 applic TP HS [facility] Last Admin: 07/22/17 22:09 Dose: 1 applic Potassium Phosphate 30 mm/ (Dextrose) 250 mls @ 62.5 mls/hr IVPB ONCE ONE Stop: 07/23/17 13:29 Last Admin: 07/23/17 09:43 Dose: 62.5 mls/hr Mupirocin (Bactroban Ointment (For Decolonization) -) 1 applic NS BID JULEE Stop: 07/27/17 21:59 Last Admin: 07/23/17 09:50 Dose: 1 applic Pantoprazole Sodium (Protonix Iv) 40 mg IVPUSH DAILY [facility] Last Admin: 07/23/17 09:37 Dose: 40 mg ASSESSMENT AND PLAN: GI Bleed Acute Blood Loss Anemia Lactic Acidosis Alcohol Abuse LV Systolic Dysfunction Acute on Chronic Renal Failure - monitor H/H - transfuse as needed - protonix - for endoscopy/colonoscopy today - ensure large bore peripheral access - monitor for signs of withdrawal, low threshold to start librium - monitor urine output, creatinine - NPO for now - DVT prophylaxis - disposition pending endoscopy/colonoscopy
--- NOTE | 2017-07-23 12:23 | PN ---
Physical Exam: SUBJECTIVE: Patient seen and examined at bedside. 24 hr events -mild tremors in PM, however as per pt, it is his baseline. Last drink Saturday PM -repeat CBC yesterday, 7.5 -pt wanted to avoid transfusions "until necessary" -3 BM's with dark red BPR Today -No acute events -Pt denies DIAMOND, fever, chills, SOB, abdominal pain, N/V/D, or blood per rectum -pt went for colonoscopy, EGD at 11AM. Returned to unit -For transfer to med-surg. Order is in OBJECTIVE: Vital Signs Period Temp Pulse Resp BP Sys/Quintero Pulse Ox Last 24 Hr 97.9 F-98.5 F 68-84 18-72 132-168/63-80 99-100 GENERAL: The patient is awake, alert, and fully oriented, in no acute distress. HEAD: Normal with no signs of trauma. EYES: PERRL, extraocular movements intact, sclera anicteric, conjunctiva clear. NECK: Trachea midline, supple. LUNGS: Breath sounds equal, clear to auscultation bilaterally, no wheezes, no crackles, no accessory muscle use. HEART: Regular rate and rhythm, S1, S2 without murmur, rub or gallop. ABDOMEN: Soft, nontender, nondistended, normoactive bowel sounds, no guarding, no rebound EXTREMITIES: 2+ posterior tibial pulses, warm, well-perfused, no edema. NEUROLOGICAL: Cranial nerves II through XII grossly intact. Laboratory Results - last 24 hr 07/22/17 07/22/17 07/22/17 08:44 12:20 14:50 WBC 13.8 H RBC 2.65 L Hgb 8.2 L Hct 25.6 L MCV 96.3 H MCH 30.9 MCHC 32.1 RDW 16.2 H Plt Count 206 D MPV 8.0 Neutrophils % 87.2 H Lymphocytes % 8.1 Monocytes % 4.1 Eosinophils % 0.2 D Basophils % 0.4 PT with INR INR Sodium Potassium Chloride Carbon Dioxide Anion Gap BUN Creatinine Creat Clearance w eGFR Random Glucose Serum Osmolality 300 Lactic Acid Calcium Phosphorus Magnesium Total Bilirubin Direct Bilirubin AST ALT Alkaline Phosphatase Total Protein Albumin Urine Osmolality Cancelled Ur Random Sodium Ur Random Potassium Ur Random Chloride Urine Creatinine Crossmatch See Detail 07/22/17 07/22/17 07/22/17 17:00 17:00 17:00 WBC 12.5 H RBC 2.40 L Hgb 7.4 L Hct 22.9 L MCV 95.7 MCH 30.9 MCHC 32.3 RDW 16.6 H Plt Count 230 MPV 7.8 Neutrophils % 82.9 H Lymphocytes % 10.1 D Monocytes % 6.4 Eosinophils % 0.3 Basophils % 0.3 PT with INR 12.60 H INR 1.12 Sodium 144 Potassium 4.5 Chloride 113 H Carbon Dioxide 26 Anion Gap 5 L BUN 29 H Creatinine 2.4 H Creat Clearance w eGFR 27.06 Random Glucose 109 H D Serum Osmolality Lactic Acid Calcium 7.3 L Phosphorus Magnesium Total Bilirubin 0.5 D Direct Bilirubin 0.2 AST 15 ALT 18 Alkaline Phosphatase 72 Total Protein 5.1 L Albumin 2.7 L Urine Osmolality Ur Random Sodium Ur Random Potassium Ur Random Chloride Urine Creatinine Crossmatch 07/22/17 07/22/17 07/22/17 17:25 17:25 17:25 WBC RBC Hgb Hct MCV MCH MCHC RDW Plt Count MPV Neutrophils % Lymphocytes % Monocytes % Eosinophils % Basophils % PT with INR INR Sodium Potassium Chloride Carbon Dioxide Anion Gap BUN Creatinine Creat Clearance w eGFR Random Glucose Serum Osmolality Lactic Acid Calcium Phosphorus Magnesium Total Bilirubin Direct Bilirubin AST ALT Alkaline Phosphatase Total Protein Albumin Urine Osmolality 474 Ur Random Sodium 54 Ur Random Potassium 51.6 Ur Random Chloride 70 Urine Creatinine 128.0 Crossmatch 07/23/17 07/23/17 07/23/17 00:00 00:00 05:10 WBC 11.8 H RBC 2.44 L Hgb 7.5 L Hct 23.5 L MCV 96.3 H MCH 30.5 MCHC 31.7 L RDW 16.3 H Plt Count 213 MPV 7.9 Neutrophils % 76.4 Lymphocytes % 13.3 D Monocytes % 8.3 Eosinophils % 1.4 D Basophils % 0.6 PT with INR INR Sodium 143 Potassium 3.5 D Chloride 110 H Carbon Dioxide 22 Anion Gap 11 BUN 23 H D Creatinine 2.1 H Creat Clearance w eGFR Random Glucose 104 Serum Osmolality Lactic Acid 2.2 H* Calcium 7.4 L Phosphorus 2.0 L Magnesium 1.9 Total Bilirubin Direct Bilirubin AST ALT Alkaline Phosphatase Total Protein Albumin Urine Osmolality Ur Random Sodium Ur Random Potassium Ur Random Chloride Urine Creatinine Crossmatch 07/23/17 07/23/17 05:10 06:30 WBC 9.1 RBC 2.28 L Hgb 7.1 L Hct 21.6 L MCV 94.7 MCH 31.2 MCHC 32.9 RDW 16.1 H Plt Count 194 MPV 7.1 L D Neutrophils % Lymphocytes % Monocytes % Eosinophils % Basophils % PT with INR INR Sodium Potassium Chloride Carbon Dioxide Anion Gap BUN Creatinine Creat Clearance w eGFR Random Glucose Serum Osmolality Lactic Acid Calcium Phosphorus Magnesium Total Bilirubin Direct Bilirubin AST ALT Alkaline Phosphatase Total Protein Albumin 2.8 L Urine Osmolality Ur Random Sodium Ur Random Potassium Ur Random Chloride Urine Creatinine Crossmatch Active Medications Generic Name Dose Route Start Last Admin Trade Name Freq PRN Reason Stop Dose Admin Chlorhexidine Gluconate 1 applic 07/22/17 22:00 07/22/17 22:09 Hibiclens For Decolonization - TP 1 applic HS JULEE Administration Potassium Phosphate 30 mm/ 250 mls @ 62.5 mls/hr 07/23/17 09:30 07/23/17 09: 43 Dextrose IVPB 07/23/17 13:29 62.5 mls/hr ONCE ONE Administration Mupirocin 1 applic 07/22/17 22:00 07/23/17 09:50 Bactroban Ointment (For Decolonization) - NS 07/27/17 21:59 1 applic BID JULEE Administration Pantoprazole Sodium 40 mg 07/23/17 10:00 07/23/17 09:37 Protonix Iv IVPUSH 40 mg DAILY JULEE Administration ASSESSMENT/PLAN: 67 y/o M with PMH of CHF and previous EtOH abuse (50 yr hx, and admitted for withdrawals in the the past), recent ingestion of five glasses of red wine on Saturday, who presented to the ED by ambulance for bright red blood per rectum. Bleeding was not a/w fever, chills, abdominal pain, N/V/D. Pt was transferred to the ICU for continued management. #GI Active GI bleed r/o esophageal varices 2/2 alcoholic abuse -Pt currently without hematochezia w/o hemodynamic instability -Aspirin is stopped -Hb currently 7.1 -Receive 1 unit if Hb<7 - if receive unit, 20mg Lasix IVP post transfusion to avoid overload -On Protonix 40mg IVP qd -EGD/Colonoscopy results: normal EGD, severe sigmoid diverticulosis, cecal flat polyp- bx, sessile polyp removed -F/u next CBC tomorrow AM -ETOH related liver disease work up as outpt RLQ tenderness most likely 2/2 air trapping s/p procedure -will monitor, should resolve -if pt spikes fever, may need abdominal x-ray #ALCOHOL WITHDRAWAL -Pt has active tremor in upper extremities, baseline for pt -Continue to monitor for signs of withdrawal -Continue Folic acid, thiamine #CARDIO CHF -Currently holding pt's home lasix -Will f/u for signs of overload if pt received unit of blood #RENAL Acute on Chronic Renal Failure -Cr improving, currently 2.1 -Continue to monitor BMP Borderline hypokalemia -Repleted with K phosph 30 mmol in D5w Hypophosphatemia -Repleted with K phosph 30 mmol in D5w Hypocalcemia -Repleted with 1g Ca gluconate IVPB #F/E/N -Monitor electrolytes -High fiber diet #PROPHYLAXIS DVT: SCD's #DISPOSITION Stable for transfer to med-surg. Order is in Visit type - Emergency Visit Emergency Visit: No - New Patient This patient is new to me today: No - Critical Care Critical Care patient: Yes Total Critical Care Time (in minutes): 42 Critical Care Statement: The care of this patient involved high complexity decision making to prevent further life threatening deterioration of the patient 's condition and/or to evaluate & treat vital organ system(s) failure or risk of failure.
--- NOTE | 2017-07-23 12:39 | PROC ---
Endoscopy Procedure Endoscopy procedure completed. Please see scanned procedure report. Normal EGD Severe sigmoid, non-bleeding, diverticulosis Cecal, 3x3 cm, flat polyp tattooed and extensively biopsied IC valve, 4 mm, sessile polyp removed via cold forceps biopsy. High fiber diet Avoid NSAIDs Follow up in office in 2 weeks
--- NOTE | 2017-07-23 13:36 | CONSULT ---
Consultation: REQUESTING PROVIDER: CONSULT REQUEST: We have been asked to medically evaluate this patient for ( specify). HISTORY OF PRESENT ILLNESS: The pt is a 67 year old male with a pmh of HTN, alcoholism who presented to the hospital for lower GI bleeding. He started bleeding on 3 days ago, bright red blood, multiple BMs. He has never had any bleeding in the past. He doesn't follow any GI doctor. He was told by his PCP that he has liver problem. Two years ago he was hospitalized for alcoholism and CHF. 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 His father and brother had kidney disease. Today, when I saw the patient after endoscopy he didn't have any complaints. He denies nausea, vomiting, bleeding, fever, chills. He denies dizziness, tremor, headache, abdominal pain, SOB, chest pain. REVIEW OF SYSTEMS: CONSTITUTIONAL: Absent: fever, chills, diaphoresis, generalized weakness, malaise, loss of appetite HEENT: Absent: rhinorrhea, nasal congestion, throat pain, throat swelling CARDIOVASCULAR: Absent: chest pain, syncope, palpitations, irregular heart rate, lightheadedness , peripheral edema RESPIRATORY: Absent: cough, shortness of breath, dyspnea with exertion, orthopnea GASTROINTESTINAL: Absent: abdominal pain, abdominal distension, nausea, vomiting, diarrhea, constipation, melena, hematochezia GENITOURINARY: Absent: dysuria, frequency, urgency, hesitancy, hematuria, flank pain MUSCULOSKELETAL: Absent: myalgia, arthralgia, joint swelling, back pain, neck pain SKIN: Absent: rash, itching, pallor ENDOCRINE: Absent: unexplained weight gain, unexplained weight loss NEUROLOGIC: Absent: headache, focal weakness or paresthesias, dizziness, unsteady gait, seizure PHYSICAL EXAMINATION Vital Signs - 24 hr 07/22/17 07/22/17 07/22/17 14:00 16:00 17:28 Temperature 98.2 F Pulse Rate 78 72 74 Respiratory 18 20 20 Rate Blood Pressure 132/64 141/63 153/69 O2 Sat by Pulse 100 Oximetry (%) 07/22/17 07/22/17 07/22/17 19:49 20:00 21:20 Temperature 97.9 F Pulse Rate 78 Respiratory 20 Rate Blood Pressure 144/80 O2 Sat by Pulse 100 99 Oximetry (%) 1107/23/17 07/23/17 22:00 00:00 02:00 Temperature 98.0 F Pulse Rate 72 68 74 Respiratory 18 20 18 Rate Blood Pressure 139/72 132/68 133/67 O2 Sat by Pulse Oximetry (%) 07/23/17 07/23/17 07/23/17 04:00 06:00 07:43 Temperature 98.4 F 98.5 F Pulse Rate 72 77 Respiratory 20 20 72 H Rate Blood Pressure 133/67 134/68 145/68 O2 Sat by Pulse Oximetry (%) 07/23/17 07/23/17 07/23/17 07:47 08:00 10:00 Temperature Pulse Rate 84 Respiratory 18 Rate Blood Pressure 168/71 O2 Sat by Pulse 100 100 Oximetry (%) 07/23/17 07/23/17 07/23/17 11:00 12:20 12:35 Temperature 98.7 F 9804 F H Pulse Rate 84 74 Respiratory 18 18 Rate Blood Pressure 121/71 129/78 O2 Sat by Pulse 97 Oximetry (%) GENERAL: Awake, alert, and fully oriented, in no acute distress. HEAD: Normal with no signs of trauma. EYES: Pupils equal, round and reactive to light, extraocular movements intact, sclera anicteric, conjunctiva clear. EARS, NOSE, THROAT: Ears normal, nares patent, oropharynx clear without exudates. Moist mucous membranes. NECK: Normal range of motion, supple without lymphadenopathy, JVD, or masses. LUNGS: Breath sounds equal, clear to auscultation bilaterally. No wheezes, and no crackles. No accessory muscle use. HEART: Regular rate and rhythm, normal S1 and S2 without murmur, rub or gallop. ABDOMEN: Obese, distended, hard, nontender, normoactive bowel sounds, no guarding, no rebound, no masses, hepatomegaly present, splenomegaly not able to assess. Shifting dullness not present. MUSCULOSKELETAL: Normal range of motion at all joints. No bony deformities or tenderness. UPPER EXTREMITIES: 2+ pulses, warm, well-perfused. No cyanosis. No clubbing. No peripheral edema. LOWER EXTREMITIES: 2+ pulses, warm, well-perfused. No calf tenderness. No peripheral edema. NEUROLOGICAL: No facial asymmetry, no weakness, motor 5/5, no sensation changes , gait not observed. PSYCHIATRIC: Cooperative. Good eye contact. Appropriate mood and affect. SKIN: Warm, dry, normal turgor, no rashes or lesions noted. Laboratory Results - last 24 hr 07/22/17 07/22/17 07/22/17 08:44 14:50 17:00 WBC 12.5 H RBC 2.40 L Hgb 7.4 L Hct 22.9 L MCV 95.7 MCH 30.9 MCHC 32.3 RDW 16.6 H Plt Count 230 MPV 7.8 Neutrophils % 82.9 H Lymphocytes % 10.1 D Monocytes % 6.4 Eosinophils % 0.3 Basophils % 0.3 PT with INR INR Sodium Potassium Chloride Carbon Dioxide Anion Gap BUN Creatinine Creat Clearance w eGFR Random Glucose Serum Osmolality 300 Lactic Acid Calcium Phosphorus Magnesium Total Bilirubin Direct Bilirubin AST ALT Alkaline Phosphatase Total Protein Albumin Urine Osmolality Cancelled Ur Random Sodium Ur Random Potassium Ur Random Chloride Urine Creatinine Crossmatch See Detail 07/22/17 07/22/17 07/22/17 17:00 17:00 17:25 WBC RBC Hgb Hct MCV MCH MCHC RDW Plt Count MPV Neutrophils % Lymphocytes % Monocytes % Eosinophils % Basophils % PT with INR 12.60 H INR 1.12 Sodium 144 Potassium 4.5 Chloride 113 H Carbon Dioxide 26 Anion Gap 5 L BUN 29 H Creatinine 2.4 H Creat Clearance w eGFR 27.06 Random Glucose 109 H D Serum Osmolality Lactic Acid Calcium 7.3 L Phosphorus Magnesium Total Bilirubin 0.5 D Direct Bilirubin 0.2 AST 15 ALT 18 Alkaline Phosphatase 72 Total Protein 5.1 L Albumin 2.7 L Urine Osmolality 474 Ur Random Sodium Ur Random Potassium Ur Random Chloride Urine Creatinine Crossmatch 07/22/17 07/22/17 07/23/17 17:25 17:25 00:00 WBC 11.8 H RBC 2.44 L Hgb 7.5 L Hct 23.5 L MCV 96.3 H MCH 30.5 MCHC 31.7 L RDW 16.3 H Plt Count 213 MPV 7.9 Neutrophils % 76.4 Lymphocytes % 13.3 D Monocytes % 8.3 Eosinophils % 1.4 D Basophils % 0.6 PT with INR INR Sodium Potassium Chloride Carbon Dioxide Anion Gap BUN Creatinine Creat Clearance w eGFR Random Glucose Serum Osmolality Lactic Acid Calcium Phosphorus Magnesium Total Bilirubin Direct Bilirubin AST ALT Alkaline Phosphatase Total Protein Albumin Urine Osmolality Ur Random Sodium 54 Ur Random Potassium 51.6 Ur Random Chloride 70 Urine Creatinine 128.0 Crossmatch 07/23/17 07/23/17 07/23/17 00:00 05:10 05:10 WBC RBC Hgb Hct MCV MCH MCHC RDW Plt Count MPV Neutrophils % Lymphocytes % Monocytes % Eosinophils % Basophils % PT with INR INR Sodium 143 Potassium 3.5 D Chloride 110 H Carbon Dioxide 22 Anion Gap 11 BUN 23 H D Creatinine 2.1 H Creat Clearance w eGFR Random Glucose 104 Serum Osmolality Lactic Acid 2.2 H* Calcium 7.4 L Phosphorus 2.0 L Magnesium 1.9 Total Bilirubin Direct Bilirubin AST ALT Alkaline Phosphatase Total Protein Albumin 2.8 L Urine Osmolality Ur Random Sodium Ur Random Potassium Ur Random Chloride Urine Creatinine Crossmatch 07/23/17 06:30 WBC 9.1 RBC 2.28 L Hgb 7.1 L Hct 21.6 L MCV 94.7 MCH 31.2 MCHC 32.9 RDW 16.1 H Plt Count 194 MPV 7.1 L D Neutrophils % Lymphocytes % Monocytes % Eosinophils % Basophils % PT with INR INR Sodium Potassium Chloride Carbon Dioxide Anion Gap BUN Creatinine Creat Clearance w eGFR Random Glucose Serum Osmolality Lactic Acid Calcium Phosphorus Magnesium Total Bilirubin Direct Bilirubin AST ALT Alkaline Phosphatase Total Protein Albumin Urine Osmolality Ur Random Sodium Ur Random Potassium Ur Random Chloride Urine Creatinine Crossmatch Active Medications Generic Name Dose Route Start Last Admin Trade Name Freq PRN Reason Stop Dose Admin Chlorhexidine Gluconate 1 applic 07/22/17 22:00 07/22/17 22:09 Hibiclens For Decolonization - TP 1 applic HS JULEE Administration Potassium Phosphate 30 mm/ 250 mls @ 62.5 mls/hr 07/23/17 09:30 07/23/17 09: 43 Dextrose IVPB 07/23/17 13:29 62.5 mls/hr ONCE ONE Administration Mupirocin 1 applic 07/22/17 22:00 07/23/17 09:50 Bactroban Ointment (For Decolonization) - NS 07/27/17 21:59 1 applic BID JULEE Administration Pantoprazole Sodium 40 mg 07/23/17 10:00 07/23/17 09:37 Protonix Iv IVPUSH 40 mg DAILY JULEE Administration ASSESSMENT/PLAN: The pt is a 67 year old male with a pmh of HTN, alcoholism who presented to the hospital for lower GI bleeding. He started bleeding on 3 days ago, bright red blood, multiple BMs. He is admitted for lower GI bleed. 1CKD 2Anemia 3Alcoholism 4HTN 1chronic kidney disease-kidney function is improving, will f/u UA and protein/ Cr ratio. US reviewed, will follow up as outpatient. Avoid nephrotoxic substances and continue hydration. 2microcytic anemia-due to diverticulosis found on colonoscopy, no transfusion is recommended by ICU team and GI, will monitor for more bleeding episodes. 3will observe for alcohol withdrawal 4 no meds for now Dispo: We will continue to follow the patient. Thank you for this consultative opportunity. Problem List - Problems (1) Alcohol abuse Code(s): F10.10 - ALCOHOL ABUSE, UNCOMPLICATED (2) Hematochezia Code(s): K92.1 - MELENA (3) Renal insufficiency Code(s): N28.9 - DISORDER OF KIDNEY AND URETER, UNSPECIFIED (4) Acute renal failure Code(s): N17.9 - ACUTE KIDNEY FAILURE, UNSPECIFIED (5) Acute systolic congestive heart failure Code(s): I50.21 - ACUTE SYSTOLIC (CONGESTIVE) HEART FAILURE (6) Alcohol dependence Code(s): F10.20 - ALCOHOL DEPENDENCE, UNCOMPLICATED (7) HTN (hypertension) Code(s): I10 - ESSENTIAL (PRIMARY) HYPERTENSION (8) Lactic acidosis Code(s): E87.2 - ACIDOSIS Visit type - Emergency Visit Emergency Visit: Yes ED Registration Date: 07/22/17 Care time: The patient presented to the Emergency Department on the above date and was hospitalized for further evaluation of their emergent condition. - New Patient This patient is new to me today: Yes Date on this admission: 07/23/17 - Critical Care Critical Care patient: Yes Total Critical Care Time (in minutes): 40 Critical Care Statement: The care of this patient involved high complexity decision making to prevent further life threatening deterioration of the patient 's condition and/or to evaluate & treat vital organ system(s) failure or risk of failure.
[2017-07-23] MEDS ORDERED: CALCIUM GLUCONATE 10% - 1,000 MG/10 ML VIAL IVPB ONE (13:58)
--- NOTE | 2017-07-23 14:33 | PN ---
Teaching Attending Note Name of Resident: Sultana Pickett (Nephrology) ATTENDING PHYSICIAN STATEMENT I saw and evaluated the patient. I reviewed the resident's note and discussed the case with the resident. I agree with the resident's findings and plan as documented. Renal Follow Up Please see note filled out by resident. Pt is a 67 year old male with pmhx of etoh abuse, ckd, and chf who presents to the ER with blood per rectum. He was admitted for GI bleed. Pt was found to have elevated creatinine and I was called to evaluate him. He denies shortness of breath or lower extremity edema. He is awake and alert. He did go for colonoscopy which showed diverticulosis. pmhx ckd etoh abuse htn nkda social daily etoh use family hx denies ros denies Current Medications Generic Name Dose Route Start Last Admin Trade Name Freq PRN Reason Stop Dose Admin Chlorhexidine Gluconate 1 applic 07/22/17 22:00 07/22/17 22:09 Hibiclens For Decolonization - TP 1 applic HS JULEE Administration Mupirocin 1 applic 07/22/17 22:00 07/23/17 09:50 Bactroban Ointment (For Decolonization) - NS 07/27/17 21:59 1 applic BID JULEE Administration Pantoprazole Sodium 40 mg 07/23/17 10:00 07/23/17 09:37 Protonix Iv IVPUSH 40 mg DAILY JULEE Administration Last Vital Signs Temp Pulse Resp BP Pulse Ox 9804 F H 74 18 148/71 97 07/23/17 12:20 07/23/17 14:09 07/23/17 14:09 07/23/17 14:09 07/23/17 12:35 Laboratory Tests 06/28/14 06/29/14 07/22/17 09:52 05:15 08:55 WBC Hgb BUN 31 H D Creatinine 1.6 H 1.5 H 2.8 H D Ur Random Sodium Ur Random Potassium Ur Random Chloride Urine Creatinine Hep Bs Antigen Hep Bs Antibody Hep B Core Total Ab Hep B Core Ab Interpret Hepatitis C Antibody 07/22/17 07/22/17 07/22/17 17:00 17:00 17:00 WBC Hgb 7.4 L BUN 29 H Creatinine 2.4 H Ur Random Sodium Ur Random Potassium Ur Random Chloride Urine Creatinine Hep Bs Antigen Hep Bs Antibody Hep B Core Total Ab Hep B Core Ab Interpret Hepatitis C Antibody Pending 07/22/17 07/22/17 07/23/17 17:25 17:25 00:00 WBC Hgb 7.5 L BUN Creatinine Ur Random Sodium 54 Ur Random Potassium 51.6 Ur Random Chloride 70 Urine Creatinine 128.0 Hep Bs Antigen Hep Bs Antibody Hep B Core Total Ab Hep B Core Ab Interpret Hepatitis C Antibody 07/23/17 07/23/17 07/23/17 05:10 05:10 06:30 WBC 9.1 Hgb 7.1 L BUN 23 H D Creatinine 2.1 H Ur Random Sodium Ur Random Potassium Ur Random Chloride Urine Creatinine Hep Bs Antigen Pending Hep Bs Antibody Pending Hep B Core Total Ab Pending Hep B Core Ab Interpret Pending Hepatitis C Antibody cxr cardiomegaly u/s shows left renal agenesis cardio s1s2 reg pulm clear GI soft, obese ext neg edema neuro awake and alert skin neg rash psych stable Impression 1. MARGARETH 2. CKD with atrophic left kidney 3. hx etoh abuse 4. anemia 5. GI bleed 6. hyperlipidemia Plan - renal function is stabilizing - repeat labs in am - monitor hg and transfuse as necessary - avoid nephrotoxins - follow official endoscopy report - ICU monitoring per team - no acute change in management - follow up hep panel - monitor lactic acid levels - relace phos - monitor for signs of withdrawl - will follow Dr Melvin
[2017-07-23] MEDS ORDERED: NAPH,MB-DB/K PH,MBDB POWDER PACKET PO ONE (14:35)
--- NOTE | 2017-07-23 14:51 | PN ---
Progress Note, Physician Chief Complaint: S/P EGD AND COLONOSCOPY COMFORTABLE AGREEING TO TRANSFUSION PRBC - Current Medication List Current Medications: Active Medications Chlorhexidine Gluconate (Hibiclens For Decolonization -) 1 applic TP HS [facility] Last Admin: 07/22/17 22:09 Dose: 1 applic Mupirocin (Bactroban Ointment (For Decolonization) -) 1 applic NS BID [facility] Stop: 07/27/17 21:59 Last Admin: 07/23/17 09:50 Dose: 1 applic Pantoprazole Sodium (Protonix Iv) 40 mg IVPUSH DAILY [facility] Last Admin: 07/23/17 09:37 Dose: 40 mg - Objective Vital Signs: Vital Signs Temperature 9804 F H 07/23/17 12:20 Pulse Rate 74 07/23/17 14:09 Respiratory Rate 18 07/23/17 14:09 Blood Pressure 148/71 07/23/17 14:09 O2 Sat by Pulse Oximetry (%) 97 07/23/17 12:35 Constitutional: Yes: Mild Distress Eyes: Yes: WNL HENT: Yes: WNL Neck: Yes: WNL Cardiovascular: Yes: WNL Respiratory: Yes: WNL Gastrointestinal: Yes: WNL Genitourinary: Yes: WNL Musculoskeletal: Yes: WNL Extremities: Yes: WNL Edema: No Peripheral Pulses WNL: Yes Integumentary: Yes: WNL Wound/Incision: Yes: Clean/Dry Neurological: Yes: WNL ...Motor Strength: WNL Psychiatric: Yes: WNL Labs: CBC, BMP 07/23/17 06:30 07/23/17 05:10 INR, PTT INR 1.12 (0.82-1.09) 07/22/17 17:00 Problem List - Problems (1) Alcohol abuse Code(s): F10.10 - ALCOHOL ABUSE, UNCOMPLICATED (2) GI bleed Code(s): K92.2 - GASTROINTESTINAL HEMORRHAGE, UNSPECIFIED Qualifiers: GI bleed type/associated pathology: anorectal hemorrhage Qualified Code(s) : K62.5 - Hemorrhage of anus and rectum (3) Hematochezia Code(s): K92.1 - MELENA Assessment/Plan TRANSFUSE PRBC 2 UNITS CHECK LABS IN AM DC PLANNING ETOH ABSTINENCE
[2017-07-23 17:54] LABS: URINE APPEARANCE CLEAR; URINE BILIRUBIN NEGATIVE (NEGATIVE); URINE BLOOD NEGATIVE (NEGATIVE); URINE COLOR LTYELLOW; URINE GLUCOSE (UA) NEGATIVE (NEGATIVE); URINE KETONE TRACE (NEGATIVE); URINE NITRITE NEGATIVE (NEGATIVE); URINE PROTEIN NEGATIVE (NEGATIVE); URINE UROBILINOGEN NEGATIVE mg/dL (0.2-1.0)
[2017-07-23] MEDS ORDERED: FUROSEMIDE 40 MG/4 ML INJECTABLE VIAL IVPUSH ONE ×2 (19:00→22:30)
[2017-07-23 21:28] LABS: URINE LEUK ESTERASE Negative (NEGATIVE)
[2017-07-23] MEDS ORDERED: MUPIROCIN 2% TOPICAL OINTMENT FOR DECOLONIZATION NS SCH (22:00)
[2017-07-23] MEDS ORDERED: CHLORHEXIDINE GLUCONATE 4% CLEANSER FOR DECOLONIZATION TP SCH (22:00)
[2017-07-24 08:07] LABS: BASOPHIL 0.5 % (0-2.0); EOSINOPHIL 1.6 % (0-4.5); MCH 31.4 pg (25.7-33.7); MCHC 33.3 g/dl (32.0-35.9); MEAN CELL VOLUME 94.3 fl (80-96); NEUTROPHILS 77.4 % (42.8-82.8); PLATELET COUNT 207 K/MM3 (134-434); WHITE BLOOD COUNT 8.2 K/mm3 (4.0-10.0)
[2017-07-24 08:56] LABS: ALBUMIN 2.8 g/dl (3.4-5.0); ALK PHOS 70 U/L (45-117); ANION GAP 8 (8-16); BILIRUBIN,TOTAL 0.7 mg/dL (0.2-1.0); CALCIUM 7.5 mg/dL (8.5-10.1); CO2 25 mmol/L (21-32); GLUCOSE,RANDOM 95 mg/dL (74-106); MAGNESIUM 1.9 mg/dL (1.8-2.4); PHOSPHOROUS 2.8 mg/dL (2.5-4.9); SGOT/AST 19 U/L (15-37); SGPT/ALT 16 U/L (12-78); TOT PROT 5.2 g/dl (6.4-8.2)
--- NOTE | 2017-07-24 09:57 | PN ---
Progress Note, Physician History of Present Illness: Asymptomatic. Offers no complaints. Received 2 u PRBC last night. No signs, or stigmata of recent, or ongoing bleeding - Current Medication List Current Medications: Active Medications Pantoprazole Sodium (Protonix Iv) 40 mg IVPUSH DAILY JULEE - Objective Vital Signs: Vital Signs Temperature 97.8 F 07/24/17 08:00 Pulse Rate 79 07/24/17 08:00 Respiratory Rate 18 07/24/17 08:00 Blood Pressure 148/65 07/24/17 08:00 O2 Sat by Pulse Oximetry (%) 97 07/23/17 22:00 Constitutional: Yes: Well Nourished, No Distress, Calm Eyes: Yes: Conjunctiva Clear HENT: Yes: Atraumatic Neck: Yes: Supple Cardiovascular: Yes: Regular Rate and Rhythm Respiratory: Yes: Regular Gastrointestinal: Yes: Normal Bowel Sounds, Soft. No: Distention Neurological: Yes: Alert, Oriented Labs: CBC, BMP 07/24/17 07:22 07/24/17 07:22 INR, PTT INR 1.12 (0.82-1.09) 07/22/17 17:00 CBCD WBC 8.2 K/mm3 (4.0-10.0) 07/24/17 07:22 RBC 2.61 M/mm3 (4.00-5.60) L 07/24/17 07:22 Hgb 8.2 GM/dL (11.7-16.9) L D 07/24/17 07:22 Hct 24.6 % (35.4-49) L 07/24/17 07:22 MCV 94.3 fl (80-96) 07/24/17 07:22 MCHC 33.3 g/dl (32.0-35.9) 07/24/17 07:22 RDW 17.0 % (11.9-15.9) H 07/24/17 07:22 Plt Count 207 K/MM3 (134-434) 07/24/17 07:22 MPV 7.0 fl (7.5-11.1) L 07/24/17 07:22 CMP Sodium 142 mmol/L (136-145) 07/24/17 07:22 Potassium 3.7 mmol/L (3.5-5.1) 07/24/17 07:22 Chloride 109 mmol/L (98-107) H 07/24/17 07:22 Carbon Dioxide 25 mmol/L (21-32) 07/24/17 07:22 Anion Gap 8 (8-16) 07/24/17 07:22 BUN 12 mg/dL (7-18) D 07/24/17 07:22 Creatinine 2.0 mg/dL (0.7-1.3) H 07/24/17 07:22 Creat Clearance w eGFR 33.39 (>60) 07/24/17 07:22 Calcium 7.5 mg/dL (8.5-10.1) L 07/24/17 07:22 Total Bilirubin 0.7 mg/dL (0.2-1.0) D 07/24/17 07:22 AST 19 U/L (15-37) D 07/24/17 07:22 ALT 16 U/L (12-78) 07/24/17 07:22 Alkaline Phosphatase 70 U/L (45-117) 07/24/17 07:22 Total Protein 5.2 g/dl (6.4-8.2) L 07/24/17 07:22 Albumin 2.8 g/dl (3.4-5.0) L 07/24/17 07:22 Problem List - Problems (1) Hematochezia Code(s): K92.1 - MELENA (2) Alcohol abuse Code(s): F10.10 - ALCOHOL ABUSE, UNCOMPLICATED (3) Renal insufficiency Code(s): N28.9 - DISORDER OF KIDNEY AND URETER, UNSPECIFIED (4) Alcohol withdrawal Code(s): F10.239 - ALCOHOL DEPENDENCE WITH WITHDRAWAL, UNSPECIFIED (5) Congestive heart failure, acute Code(s): I50.9 - HEART FAILURE, UNSPECIFIED (6) Continuous alcohol dependence Code(s): F10.20 - ALCOHOL DEPENDENCE, UNCOMPLICATED Assessment/Plan Sigmoid diverticulosis - the likely reason for LGB Cecal polyp/lesion that needs to be followed OK to d/c from GI perspective High fiber diet and avoid constipation, hard, stools, straining. Follow up in office in 2 weeks discussed with the patient, he verbalized understanding and agreed.
[2017-07-24] MEDS ORDERED: PANTOPRAZOLE SODIUM 40 MG VIAL IVPUSH SCH (10:00)
--- NOTE | 2017-07-24 10:56 | PN ---
Physical Exam: SUBJECTIVE: Patient seen and examined. He is feeling good today. He denies bleeding, melena, fever, chills, nausea, vomiting. OBJECTIVE: Vital Signs Period Temp Pulse Resp BP Sys/Quintero Pulse Ox Last 24 Hr 97.8 F-9804 F 69-84 18-20 104-150/55-81 97-97 GENERAL: The patient is awake, alert, and fully oriented, in no acute distress. HEAD: Normal with no signs of trauma. EYES: extraocular movements intact ENT: oropharynx clear without exudates, moist mucous membranes. NECK: Trachea midline, supple LUNGS: Breath sounds equal, clear to auscultation bilaterally, no wheezes, no crackles, no accessory muscle use. HEART: Regular rate and rhythm, S1, S2 without murmur, rub or gallop. ABDOMEN: Obese, distended, soft, nontender, nondistended, normoactive bowel sounds, no guarding, hepatomegaly. EXTREMITIES: 2+ pulses, warm, well-perfused, no edema. NEUROLOGICAL: Normal speech, gait not observed. PSYCH: Normal mood, normal affect. SKIN: Warm, dry, normal turgor, no rashes or lesions noted Laboratory Results - last 24 hr 07/22/17 07/22/17 07/23/17 08:44 17:00 05:10 WBC RBC Hgb Hct MCV MCH MCHC RDW Plt Count MPV Neutrophils % Lymphocytes % Monocytes % Eosinophils % Basophils % Sodium Potassium Chloride Carbon Dioxide Anion Gap BUN Creatinine Creat Clearance w eGFR Random Glucose Lactic Acid Calcium Phosphorus Magnesium Total Bilirubin AST ALT Alkaline Phosphatase Total Protein Albumin Urine Color Urine Appearance Urine pH Ur Specific [place] Urine Protein Urine Glucose (UA) Urine Ketones Urine Blood Urine Nitrite Urine Bilirubin Urine Urobilinogen Ur Leukocyte Esterase U Random Total Protein Urine Creatinine Protein/Creatinin Ratio Hep A IgM Ab Confirm Negative Hepatitis A Ab Total Negative Hep Bs Antigen Negative Hep Bs Antibody Non reactive Hep B Core Total Ab Negative Hepatitis C Antibody <0.1 Blood Type O POSITIVE Antibody Screen Negative Crossmatch See Detail 07/23/17 07/23/17 07/23/17 15:25 17:20 17:20 WBC RBC Hgb Hct MCV MCH MCHC RDW Plt Count MPV Neutrophils % Lymphocytes % Monocytes % Eosinophils % Basophils % Sodium Potassium Chloride Carbon Dioxide Anion Gap BUN Creatinine Creat Clearance w eGFR Random Glucose Lactic Acid Calcium Phosphorus Magnesium Total Bilirubin AST ALT Alkaline Phosphatase Total Protein Albumin Urine Color Ltyellow Urine Appearance Clear Urine pH 6.0 Ur Specific [place] 1.012 Urine Protein Negative Urine Glucose (UA) Negative Urine Ketones Trace H Urine Blood Negative Urine Nitrite Negative Urine Bilirubin Negative Urine Urobilinogen Negative Ur Leukocyte Esterase Negative U Random Total Protein 13 H Urine Creatinine 101.0 Protein/Creatinin Ratio 0.13 Hep A IgM Ab Confirm Hepatitis A Ab Total Hep Bs Antigen Hep Bs Antibody Hep B Core Total Ab Hepatitis C Antibody Blood Type O POSITIVE Antibody Screen Crossmatch 07/24/17 07/24/17 07/24/17 07:22 07:22 07:22 WBC 8.2 RBC 2.61 L Hgb 8.2 L D Hct 24.6 L MCV 94.3 MCH 31.4 MCHC 33.3 RDW 17.0 H Plt Count 207 MPV 7.0 L Neutrophils % 77.4 Lymphocytes % 12.7 Monocytes % 7.8 Eosinophils % 1.6 Basophils % 0.5 Sodium 142 Potassium 3.7 Chloride 109 H Carbon Dioxide 25 Anion Gap 8 BUN 12 D Creatinine 2.0 H Creat Clearance w eGFR 33.39 Random Glucose 95 Lactic Acid 0.7 Calcium 7.5 L Phosphorus 2.8 D Magnesium 1.9 Total Bilirubin 0.7 D AST 19 D ALT 16 Alkaline Phosphatase 70 Total Protein 5.2 L Albumin 2.8 L Urine Color Urine Appearance Urine pH Ur Specific [place] Urine Protein Urine Glucose (UA) Urine Ketones Urine Blood Urine Nitrite Urine Bilirubin Urine Urobilinogen Ur Leukocyte Esterase U Random Total Protein Urine Creatinine Protein/Creatinin Ratio Hep A IgM Ab Confirm Hepatitis A Ab Total Hep Bs Antigen Hep Bs Antibody Hep B Core Total Ab Hepatitis C Antibody Blood Type Antibody Screen Crossmatch Active Medications Generic Name Dose Route Start Last Admin Trade Name Freq PRN Reason Stop Dose Admin Pantoprazole Sodium 40 mg 07/24/17 10:00 07/24/17 09:55 Protonix Iv IVPUSH 40 mg DAILY JULEE Administration ASSESSMENT/PLAN: The pt is a 67 year old male with a pmh of HTN, alcoholism who presented to the hospital for lower GI bleeding. He started bleeding on 3 days ago, bright red blood, multiple BMs. He is admitted for lower GI bleed. 1CKD 2Anemia 3Alcoholism 4HTN 1chronic kidney disease-kidney function is improving, FENA is below 1, will follow up as outpatient. 2microcytic anemia-due to diverticulosis, Hgb stable, no more episodes of bleeding 3no withdrawal symproms 4 no meds Dispo: The pt was transferred from ICU to med surg yesterday. We will continue to follow the patient. Thank you for this consultative opportunity. Problem List - Problems (1) Alcohol abuse Code(s): F10.10 - ALCOHOL ABUSE, UNCOMPLICATED (2) Hematochezia Code(s): K92.1 - MELENA (3) Renal insufficiency Code(s): N28.9 - DISORDER OF KIDNEY AND URETER, UNSPECIFIED (4) Acute renal failure Code(s): N17.9 - ACUTE KIDNEY FAILURE, UNSPECIFIED (5) Acute systolic congestive heart failure Code(s): I50.21 - ACUTE SYSTOLIC (CONGESTIVE) HEART FAILURE (6) Alcohol dependence Code(s): F10.20 - ALCOHOL DEPENDENCE, UNCOMPLICATED (7) HTN (hypertension) Code(s): I10 - ESSENTIAL (PRIMARY) HYPERTENSION (8) Lactic acidosis Code(s): E87.2 - ACIDOSIS Visit type - Emergency Visit Emergency Visit: Yes ED Registration Date: 07/22/17 Care time: The patient presented to the Emergency Department on the above date and was hospitalized for further evaluation of their emergent condition. - New Patient This patient is new to me today: No - Critical Care Critical Care patient: No - Discharge Referral Referred to [facility] No
--- NOTE | 2017-07-24 10:58 | DS ---
Physical Examination Vital Signs: Vital Signs Temperature 97.8 F 07/24/17 08:00 Pulse Rate 79 07/24/17 08:00 Respiratory Rate 18 07/24/17 09:00 Blood Pressure 148/65 07/24/17 08:00 O2 Sat by Pulse Oximetry (%) 97 07/24/17 09:00 Findings/Remarks: seen by GI and cleared to go home feels good, tolerating meals Constitutional: Yes: No Distress Eyes: Yes: WNL HENT: Yes: WNL, Tonsillar Exudate Cardiovascular: Yes: WNL Respiratory: Yes: WNL Gastrointestinal: Yes: WNL Renal/: Yes: WNL Musculoskeletal: Yes: WNL Extremities: Yes: WNL Edema: No Peripheral Pulses WNL: Yes Integumentary: Yes: WNL Wound/Incision: Yes: Clean/Dry Neurological: Yes: WNL ...Motor Strength: WNL Psychiatric: Yes: WNL Labs: CBC, BMP 07/24/17 07:22 07/24/17 07:22 Discharge Summary Reason For Visit: GASTROINTESTINAL HEMORRHAGE Current Active Problems Alcohol abuse (Acute) GI bleed (Acute) Hematochezia (Acute) Renal insufficiency (Acute) Procedures: Principal: colonoscopy/egd Hospital Course: admitted with gi bleed, treated with colonoscopy/egd, biopsy and polypectomy done. transfused prbc's and will f/u with GI in 2 weeks, his PMD dr morales in 5 days Condition: Stable - Instructions Diet, Activity, Other Instructions: see Dr Morales saturday 10 am GI follow up in 2 weeks to review Referrals: Glen Morales [Primary Care Provider] - Disposition: HOME - Home Medications Comprehensive Discharge Medication List: Ambulatory Orders Furosemide [Lasix -] 20 mg PO DAILY #30 tablet 07/02/14 Amlodipine Besylate 5 mg PO DAILY #0 tab 07/24/17 Aspirin [ASA -] 81 mg PO DAILY #0 tab 07/24/17 Atorvastatin Calcium 20 mg PO DAILY #0 tab 07/24/17 Carvedilol [Coreg -] 12.5 mg PO BID #0 tab 07/24/17 Pantoprazole Sodium [Protonix] 40 mg PO DAILY #30 tablet. 07/24/17
[2017-07-24 11:06] VITALS: BP 155/64; PULSE 77; TEMP 98.5
--- NOTE | 2017-07-24 12:06 | PN ---
Teaching Attending Note Name of Resident: Sultana Pickett (Nephrology) ATTENDING PHYSICIAN STATEMENT I saw and evaluated the patient. I reviewed the resident's note and discussed the case with the resident. I agree with the resident's findings and plan as documented. Nephrology Pt seen and examined at bedside. He feels well. He denies dysuria or hematuria. He denies lower ext edema or shortness of breath. Laboratory Tests 07/23/17 07/24/17 07/24/17 05:10 07:22 07:22 Hgb 8.2 L D BUN 12 D Creatinine 2.0 H Lactic Acid Hep Bs Antigen Negative Hep Bs Antibody Non reactive Hep B Core Total Ab Negative 07/24/17 07:22 Hgb BUN Creatinine Lactic Acid 0.7 Hep Bs Antigen Hep Bs Antibody Hep B Core Total Ab cardio s1s2 reg pulm clear GI soft, obese ext neg edema neuro awake and alert skin neg rash psych stable Impression 1. MARGARETH 2. CKD with atrophic left kidney 3. hx etoh abuse 4. anemia 5. GI bleed 6. hyperlipidemia Plan - creatinine continues to improve - will see pt in office next week - discussed etoh use - avoid nephrotoxins - labs reviewed - monitor for signs of withdrawl - will follow Dr Melvin
--- NOTE | 2017-07-24 12:54 | PATH ---
Surgical Pathology Report Patient Name: GLEN CHAVEZ [facility]. Rec. #: [id number] /Age/Gender: 1950 (Age: 67) / M Account: [id number] Location: [address] [place] [address]/[facility] Taken: 07/23/2017 Received: 07/23/2017 Reported: 07/24/2017 Physicians: Bill Farrell M.D. Specimen(s) Received A: BX ANTRUM, BODY B: BX CECAL LESIONS C: ILEOCECAL VALVE POLYP Clinical History Preoperative diagnosis: GI bleed Postoperative diagnosis: Blood loss, anemia, diverticulosis, cecal lesions, ileocecal valve polyp Final Diagnosis A. STOMACH, ANTRUM AND BODY, BIOPSY: GASTRIC ANTRAL AND FUNDIC MUCOSA WITH NO PATHOLOGIC CHANGES. IMMUNOSTAIN FOR H. PYLORI IS NEGATIVE. B. COLON, CECUM, BIOPSY: MULTIPLE PORTIONS OF TUBULAR ADENOMA. C. COLON, ILEOCECAL VALVE, BIOPSY: TUBULAR ADENOMA. Electronically Signed Glen Mcclian M.D. Gross Description A. Received in formalin, labeled "biopsy antrum/body" are 2 chance, irregular portions of soft tissue averaging 0.4 cm. in greatest dimension. The specimens are submitted in toto in one cassette. B. Received in formalin, labeled "biopsy cecal lesions" are 7 chance, irregular portions of soft tissue ranging from 0.1-0.4 cm. in greatest dimension. The specimens are submitted in toto in one cassette. C. Received in formalin, labeled "biopsy ileocecal valve polyp" is a chance, irregular portion of soft tissue measuring 0.5 cm. in greatest dimension. The specimen is submitted in toto in one cassette. 07/23/201707/23/2017
== END 2017-07-24 12:09 | disposition home or self-care (01) | DRG 378 ==
LOC: JER 08:22 → JERBED 10:11 → JICU 11:28 → J5S 07-23 18:56
PROVIDERS: ADMIT Family Medicine; ATTEND Family Medicine
PROC: 30233H1 Transfusion of Nonautologous Whole Blood into Peripheral Vein, Percutaneous Approach (ICD-10-PCS; 2017-07-22)
PROC: 0DBC8ZX Excision of Ileocecal Valve, Via Natural or Artificial Opening Endoscopic, Diagnostic (ICD-10-PCS; 2017-07-23)
PROC: 0DDH8ZX Extraction of Cecum, Via Natural or Artificial Opening Endoscopic, Diagnostic (ICD-10-PCS; 2017-07-23)
PROC: 0DJ08ZZ Inspection of Upper Intestinal Tract, Via Natural or Artificial Opening Endoscopic (ICD-10-PCS; principal; 2017-07-23 11:00)
DX: K57.31 Diverticulosis of large intestine without perforation or abscess with bleeding (principal); D62 Acute posthemorrhagic anemia; N17.9 Acute kidney failure, unspecified; E87.2 Acidosis; I13.0 Hypertensive heart and chronic kidney disease with heart failure and stage 1 through stage 4 chronic kidney disease, or unspecified chronic kidney disease; F10.230 Alcohol dependence with withdrawal, uncomplicated; I11.0 Hypertensive heart disease with heart failure; I50.9 Heart failure, unspecified; E83.51 Hypocalcemia; N18.9 Chronic kidney disease, unspecified; N26.1 Atrophy of kidney (terminal); E83.39 Other disorders of phosphorus metabolism; D64.9 Anemia, unspecified; Z87.891 Personal history of nicotine dependence; K64.4 Residual hemorrhoidal skin tags; D12.0 Benign neoplasm of cecum; E87.6 Hypokalemia; D50.9 Iron deficiency anemia, unspecified; E66.9 Obesity, unspecified; Z68.34 Body mass index [BMI] 34.0-34.9, adult; Y90.0 Blood alcohol level of less than 20 mg/100 ml
CPT/HCPCS: 36415; 36430; 71010-TC; 76775-TC; 80048; 80053; 81003; 82040; 82248; 82436; 82550; 82553; 82570; 83605; 83690; 83735; 83930; 83935; 84100; 84133; 84156; 84300; 84484; 85025; 85027; 85610; 85730; 86704; 86708; 86803; 86850; 86900; 86901; 86922; 87340; 88305-TC; 93005; 93010; 99285-25; P9038; P9058